=== PATIENT | female | born 1975 | race Hispanic/Latino ===

== ENCOUNTER 2019-05-02 18:29 | Day surgery (SDC) | payer SELFPAY ==
[2019-05-02 19:10] VITALS: BP 114/56; TEMP 98.6; BMI 26.7
--- NOTE | 2019-05-02 20:42 | PDOC.EVN ---
Event Note - Event Note Event Note: OBGYN Atending At bedside 43 yo Grandmultip with poss CTX. No LOF No VB Good FM CX was 1cm/50/-3...BOWI Do not suspect active PTL. We will check TVL sono per protocol See full H&P
--- NOTE | 2019-05-02 22:43 | ULT ---
US Pelvic W Doppler History: Pain Comparison: None. Findings: Real-time grayscale, color, and spectral analysis of the gravid uterus was performed. Single intrauterine with heart rate documented at 132 bpm. The placenta is posterior. Amnio tic fluid index: 19.1 cm. Fetus is in vertex position. Cervix measures 4.3 cm and is closed. Impression: Single viable intrauterine with closed cervix.
--- NOTE | 2019-05-02 22:53 | PDOC.EVN ---
Event Note - Event Note Event Note: CX 4cm...ok for DC home Strip checked by me
--- NOTE | 2019-05-02 23:01 | PDOC.FPROB ---
Addendum entered and electronically signed by Dioni Black MD 05/03/19 00:02 : TVU revealed a cervical length > 4 cm. Patient was counseled that she was not in active labor and the should would be DC'd home with strict return instructions if she felt her contractions begin to increase or if she felt a loss of fluid or felt a gush of blood. Original Note: FMR OB H&P: HPI - History of Present Illness Chief Complaint: Contractions History of Present Illness: Mrs. Jim Win is a 43 y/o at 32W with a history of 5 SVDs, 1 prior C- Section, and 1 prior who presents to L&D with contractions. She states that she has been having contractions sporadically for the past 2 days. She denies any loss of fluid or loss of movement, as well as any headaches, changes in vision, changes in hearing, epistaxis, cough, chest pain, shortness of breath or N/V/D. Primary Care Physician: Dr. Hanna Gallagher ([facility]) FMR OB H&P: Current - Care : 8 Para: 7 Gestational age: 32W - OB Labs Blood type: unknown RH: unknown Antibody Screen: unknown HIV: unknown RPR: unknown HepBsAg: unknown Quad screen: unknown Urine drug screen: not done Gonorrhea: unknown Chlamydia: unknown GBS: unknown FMR OB H&P: History - Past Medical History PMH: None - OB History OB History: See HPI - SCRAPE GATHERER History SCRAPE GATHERER History: None - Surgical History Sx History: See HPI - Social History Social History: Patient denied x3. - Family History Family History: Non-contributory. FMR OB H&P: Medications - Current Home Medications: Medication Instructions Recorded Confirmed Type Pnv No.95/Ferrous Fum/Folic AC 1 tab PO DAILY 05/02/19 05/02/19 History [ Vitamins Tablet] Allergies/Adverse Reactions: Allergies Allergy/AdvReac Type Severity Reaction Status Date / Time No Known Allergies Allergy Verified 05/02/19 19:14 FMR OB H&P: ROS - Review of Systems General: reports: fatigue. denies: fever/chills, night sweats, recent trauma Eyes: denies: eye pain, vision changes ENT: denies: nasal congestion, rhinorrhea, frequent nose bleed, ear pain, ringing in ears Cardiovascular: denies: chest pain, palpitation, edema Respiratory: denies: cough, congestion, shortness of breath Gastrointestinal: denies: nausea, vomiting, diarrhea Genitourinary (Female): reports: contractions. denies: dysuria, hematuria, vaginal discharge, vaginal pain, vaginal bleeding Musculoskeletal: denies: pain, arthritis/arthralgias Neurologic: denies: syncope, headache Hematologic/Lymphatic: denies: prolonged or excessive bleeding FMR OB H&P: Vital Signs - Maternal Vital signs: Vital Signs - First Documented Temp Pulse Resp BP Pulse Ox 98.6 F 69 20 114/56 L 98 05/02/19 19:01 05/02/19 19:01 05/02/19 19:01 05/02/19 19:05/02/19 19:01 - Heart Tones Baseline: 140 Variability: moderate Acceleration: present Deceleration: absent (>Q15M) FMR OB H&P: Physical Exam - Physical Exam General: NAD, awake, alert and oriented HEENT: normocephalic and atraumatic, PERRLA, EOMI, MMM, conjunctiva clear, no scleral icterus, grossly normal vision, grossly normal hearing, normal nasal mucosa, oropharynx clear Neck: supple, FROM, trachea midline, no LAD Chest: non-tender to palpation, no lesions Breast: symmetric Heart: RRR, normal S1/S2, no murmurs/rubs/gallops, pulses present, no edema General: CTAB, no respiratory distress, good air movement, no rales/rhonchi, no wheezing, no retractions Abdomen: gravid, non-tender Musculoskeletal: pulses present, FROM in all four extremities, no misalignment/ asymmetry Neurological: sensation to pain,touch and proprioception grossly normal, no tremor, no focal deficit Skin: no rash, no jaundice Lymphatic: no unusual bruising or bleeding, no purpura, no petechia, no LAD Psychiatric: intact recent and remote memory, good judgement and insight, normal mood and affect FMR OB H&P: A/P Disposition: 1. Labor Check -Patient currently being monitored on L&D Floor -Maternal / vital signs WNL -Physical exam did not reveal any noticeable loss of fluids or gush of blood -SVE performed by nursing staff did not reveal cervical dilation or considerable cervical thinning Dispo: Observe patient on L&D Floor for 2H for likely intermittent contractions w/o PTL. Plan for TVU to assess cervical length. DC home if cervical length on TVU is > 2.5 cm. Expected LOS < 4H. Discussion: Date/Time: 05/02/19 2300 This H&P was discussed with , who agrees with the above documentation and plan. ATTENDING NOTE: Plan of care reviewed.
[2019-05-03] MEDS ORDERED: FLU VACC QS2019-20(6MOS UP)/PF 60 MCG/0.5 ML SYRINGE IM ONE (09:00)
== END 2019-05-02 23:08 | disposition home or self-care (01) ==
LOC: L&D/OP 18:29
PROVIDERS: ATTEND Obstetrics & Gynecology
DX: O47.03 False labor before 37 completed weeks of gestation, third trimester (principal); O09.523 Supervision of elderly multigravida, third trimester; O34.219 Maternal care for unspecified type scar from previous cesarean delivery; Z3A.32 32 weeks gestation of pregnancy
CPT/HCPCS: 76856; 93976

== ENCOUNTER 2019-06-03 03:58 | Inpatient (IN) | payer MEDICAID, SELFPAY ==
[2019-06-03] MEDS ORDERED: NS / Oxytocin 40 units/1000ml 1,000 ML ONE (04:28)
[2019-06-03] MEDS ORDERED: Lidocaine 1% (PF) 30 ML VIAL ONE (04:28)
[2019-06-03] MEDS ORDERED: hydrALAZINE 20 MG/ML VIAL SLOW IVP PRN ×2 (04:35→07:03)
[2019-06-03] MEDS ORDERED: Misoprostol 200 MCG TAB PR PRN (04:35)
[2019-06-03] MEDS ORDERED: Ibuprofen 800 MG TAB PO PRN (04:35)
[2019-06-03] MEDS ORDERED: Promethazine HCl 25 MG/ML VIAL IM PRN (04:35)
[2019-06-03] MEDS ORDERED: Ondansetron PF 4 MG/2 ML Vial IVP PRN (04:35)
[2019-06-03] MEDS ORDERED: Methylergonovine 0.2 MG/ML VIAL IM PRN (04:35)
[2019-06-03] MEDS ORDERED: NS / Oxytocin 40 units/1000ml 1,000 ML IV PRN (04:35)
[2019-06-03] MEDS ORDERED: Lidocaine 1% (PF) 30 ML VIAL SC PRN (04:35)
[2019-06-03] MEDS ORDERED: Penicillin G Potassium 5 MILL.UNITS VIAL ONE (04:36)
[2019-06-03 04:39] VITALS: BMI 29.7
--- NOTE | 2019-06-03 04:39 | PDOC.FPROB ---
FMR OB H&P: HPI - History of Present Illness Chief Complaint: ctx Indentification: 43 y/o @ 36.4 WGA History of Present Illness: presents for ctx that have been going on since yesterday. Denies VB, d/c, LOF. Endorses movement. Primary Care Physician: Dr. Gallagher- [facility] FMR OB H&P: Current - Care : 8 Para: 7007 Gestational age: 36.4 - OB Labs Blood type: O RH: positive Antibody Screen: negative HIV: negative RPR: negative HepBsAg: negative Gonorrhea: negative Chlamydia: negative GBS: unknown FMR OB H&P: History - Past Medical History PMH: Denies - OB History OB History: 5 term , 1 section for failure to progress, 1 successful - Surgical History Sx History: section x1 - Social History Social History: Denies tobacco, EtOH, or drug use - Family History Family History: Denies FMR OB H&P: Medications - Current Home Medications: Medication Instructions Recorded Confirmed Type Pnv No.95/Ferrous Fum/Folic AC 1 tab PO DAILY 05/02/19 05/02/19 History [ Vitamins Tablet] Allergies/Adverse Reactions: Allergies Allergy/AdvReac Type Severity Reaction Status Date / Time No Known Allergies Allergy Verified 05/02/19 19:14 FMR OB H&P: ROS - Review of Systems General: denies: fever/chills, weight/appetite/sleep changes Eyes: denies: vision changes, double vision ENT: denies: nasal congestion, sore throat Cardiovascular: denies: chest pain, edema Respiratory: denies: cough, shortness of breath Gastrointestinal: denies: nausea, diarrhea Genitourinary (Female): reports: contractions. denies: dysuria, hematuria, vaginal discharge, vaginal bleeding Musculoskeletal: denies: pain, tenderness Neurologic: denies: numbness, weakness Integumentary: denies: itching, rash Psychological: denies: depression, anxiety FMR OB H&P: Vital Signs - Maternal Vital signs: Temp 98.8, HR 81, RR 20, BP 122/64 - Heart Tones Baseline: 130 Variability: moderate Acceleration: absent Deceleration: absent Category: category 1 [place] contractions every: 3 min FMR OB H&P: Physical Exam - Physical Exam General: NAD, awake, alert and oriented HEENT: MMM, conjunctiva clear, grossly normal vision, grossly normal hearing Neck: supple, FROM Heart: pulses present, no edema General: no respiratory distress Musculoskeletal: pulses present, FROM in all four extremities Neurological: no clonus, no focal deficit Skin: good tugor, capillary refill <2 seconds Lymphatic: no unusual bruising or bleeding, no purpura Psychiatric: intact recent and remote memory, good judgement and insight - Pelvic Exam SVE: FMR OB H&P: A/P - Problem List (1) Active labor Current Visit: Yes Status: Acute Code(s): O60.10X0 - LABOR W DELIVERY, UNSP TRIMESTER, UNSP Qualifiers: Fetus number: single or unspecified fetus Qualified Code(s): O60.10X0 - labor with delivery, unspecified trimester, not applicable or unspecified Assessment and Plan: Pt presented at -Admit for labor -LR @ 125 -GBS ppx as pt -FHT (2) Grand multipara in labor Current Visit: Yes Status: Acute Code(s): O09.40 - SUPERVISION OF W GRAND MULTIPARITY, UNSP TRIMESTER Assessment and Plan: Pt high risk of PPH, will have meds at bedside (3) H/O section Current Visit: Yes Status: Acute Code(s): Z98.891 - HISTORY OF UTERINE SCAR FROM PREVIOUS SURGERY Assessment and Plan: pt with 1 prior in [facility] with a subsequent successful -Will anticipate (4) Encounter for trial of labor Current Visit: Yes Status: Acute Code(s): [id number] - Assessment and Plan: Will expectantly manage as pt 8cm on admission (5) AMA (advanced maternal age) multigravida 35+ Current Visit: Yes Status: Acute Code(s): O09.529 - SUPERVISION OF ELDERLY MULTIGRAVIDA, UNSPECIFIED TRIMESTER Qualifiers: Trimester: third trimester Qualified Code(s): O09.523 - Supervision of elderly multigravida, third trimester Disposition: Admit to L&D Discussion: Date/Time: 06/03/19 5797 This H&P was discussed with Dr. Lin who agrees with the above documentation and plan. Signature: Paris Jackson MD, PGY-3 Addendum - Attending - Attending Attestation Date/Time: 06/03/19 2250 I personally evaluated the patient and discussed the management with Dr. Jackson. I agree with the History, Examination, Assessment and Plan documented above.
[2019-06-03] MEDS ORDERED: Lactated Ringer's 1,000 ML IV SCH (04:45)
[2019-06-03] MEDS ORDERED: Penicillin G 2.5 MILL.units 2.5 MILL.UNITS in Premix Bag 1 BAG IVPB SCH (04:45)
[2019-06-03] MEDS ORDERED: Penicillin G Potassium 5 MILL.UNITS in Sodium Chloride 0.9% 100 ML IVPB SCH (04:45)
[2019-06-03 05:20] LABS: Hemoglobin 12.5 g/dL (12.0-16.0); Mean Corpuscular HGB CONC 33.8 g/dL (32.0-36.0); Mean Corpuscular Hemoglobin 31.8 pg (27.0-31.0); Mean Corpuscular Volume 94.3 fL (78.0-98.0); Mean Platelet Volume 7.7 fL (7.4-10.4); Platelet Count 228 thou/uL (130-400); RBC Distribution Width 11.9 % (11.5-14.5); Red Blood Cell (RBC) Count 3.94 mill/uL (4.20-5.40); White Blood Cell (WBC) Count 13.6 thou/uL (4.8-10.8)
[2019-06-03 05:59] LABS: HBSAg Index 0.19 S/CO (0-0.99); Hep B Surf Ag Non-Reactive S/CO (NonReactive); Syphilis Antibody Nonreactive (Nonreactive); Syphilis Antibody Index 0.08 S/CO (<1.00 Non-Reactive)
[2019-06-03] MEDS ORDERED: Adacel (T-DAP) 0.5 ML SYRINGE IM ONE (07:03)
[2019-06-03] MEDS ORDERED: Milk Of Magnesia 30 ML UDCUP PO PRN (07:03)
[2019-06-03] MEDS ORDERED: Lanolin Ointment 7 GM TUBE TOP PRN (07:03)
[2019-06-03] MEDS ORDERED: Bisacodyl 10 MG SUPP PR PRN (07:03)
[2019-06-03] MEDS ORDERED: NS / Oxytocin 40 units/1000ml 1,000 ML IV SCH (07:03)
--- NOTE | 2019-06-03 07:05 | PDOC.OBPPN ---
FMR OB PN: Subj - Interval History Hospital Day: 1 Day: 0 Chief Complaint: mild abdominal pain Indentification: Interval History: s/p @ 0550 FMR OB PN: Obj - Maternal Vital signs: BP: 114/56 HR: 83 - Lochia Lochia: moderate amount of blood noted - Pain Management Pain scale: 2 Intervention: oral medication FMR OB PN: Exam - Physical Exam General: NAD, awake, alert and oriented HEENT: normocephalic and atraumatic, grossly normal vision, grossly normal hearing Neck: supple, FROM Heart: RRR, normal S1/S2 General: CTAB, no respiratory distress, good air movement, no rales/rhonchi, no wheezing, no retractions Abdomen: soft, fundus(cm) (just at umbilicus), non-tender, bowel sound present Musculoskeletal: FROM in all four extremities Neurological: cranial nerves II through XII intact, sensation to pain,touch and proprioception grossly normal, no focal deficit Skin: no rash, good tugor, capillary refill <2 seconds : appropriately tender Lymphatic: no unusual bruising or bleeding, no purpura, no petechia Psychiatric: intact recent and remote memory, good judgement and insight, normal mood and affect - Pelvic Exam : normal lochia FMR OB PN: Data - Labs Lab results: Laboratory Results - last 24 hr 06/03/19 06/03/19 06/03/19 05:09 05:09 05:09 WBC RBC Hgb Hct MCV MCH MCHC RDW Plt Count MPV Syphilis IgG/IgM Ab Nonreactive Hep Bs Antigen Non-Reactive Blood Type O POSITIVE Antibody Screen NEGATIVE 06/03/19 05:09 WBC 13.6 H RBC 3.94 L Hgb 12.5 Hct 37.1 MCV 94.3 MCH 31.8 H MCHC 33.8 RDW 11.9 Plt Count 228 MPV 7.7 Syphilis IgG/IgM Ab Hep Bs Antigen Blood Type Antibody Screen FMR OB PN: A/P - Problem List (1) Status post normal vaginal delivery Current Visit: Yes Status: Acute Code(s): [id number] - (2) 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 s/p : - Pain well-controlled. Normal lochia. Vitals WNLs. Plans to breastfeed. Will continue routine PP care. Anemia in : - s/p iron transfusion earlier in in [facility]. - H/H on admission 12.5/37.1. - Will continue PNVs & only repeat H/H should concerns arise for PPH. Grand multipara: - Aware. - Will monitor closely for S/S of PPH but fundus firm immediately following delivery w/ no lacs noted. - Will discuss need for contraception in detail prior to discharge given patient 's age and increased risk of complications with future deliveries. AMA: - Aware, patient declined testing and unsure if ever saw MFM per PNC notes. - Concern for down's in . h/o C/S: - Aware, patient now s/p successful x2. h/o : - Aware. Dispo: Continue routine PP care. Discussion: Date/Time: 06/03/19702 This H&P was discussed with Dr. Lin who agrees with the above documentation and plan. Addendum - Attending - Attending Attestation Date/Time: 06/03/19732 I personally evaluated the patient and discussed the management with Dr. Gallagher. I agree with the Assessment and Plan documented above.
[2019-06-03] MEDS: Acetaminophen/Codeine 30-300mg Tablet PO PRN (07:53)
[2019-06-03] MEDS ORDERED: FLU VACC QS2019-20(6MOS UP)/PF 60 MCG/0.5 ML SYRINGE IM ONE (09:00)
[2019-06-03] MEDS: Prenatal Vitamin 1 TAB PO SCH (09:13)
[2019-06-03] MEDS: Docusate Calcium (SURFAK) 240 MG CAP PO SCH ×2 (09:13→21:30)
[2019-06-03] MEDS: Ferrous Sulfate 325 MG TAB PO SCH ×2 (09:16→15:28)
[2019-06-03] MEDS: Ibuprofen 800 MG TAB PO SCH ×2 (13:51→21:30)
--- NOTE | 2019-06-04 00:14 | PDOC.OBPPN ---
FMR OB PN: Subj - Interval History Hospital Day: 2 Day: 1 Chief Complaint: orthostasis Indentification: Interval History: pp day #1 s/p FMR OB PN: Obj - Maternal Vital signs: BP: 93/50 HR: 60 RR: 20 Tmax: 97.7F Pox: 99% on RA Wt: 68.946 kg - Urine output I&O: 06/02/19 06/03/19 06/04/19 06:59 06:59 06:59 Output Total 188 Balance -188 - Lochia Lochia: small amount of blood on ashley pad - Pain Management Pain scale: 2 Intervention: oral medication FMR OB PN: Exam - Physical Exam General: NAD, awake, alert and oriented HEENT: normocephalic and atraumatic, grossly normal vision, grossly normal hearing Neck: supple, FROM Heart: RRR, normal S1/S2, no murmurs/rubs/gallops, pulses present, no edema General: CTAB, no respiratory distress, good air movement, no rales/rhonchi, no wheezing Abdomen: soft, fundus(cm) (firm just below umbilicus), bowel sound present Musculoskeletal: FROM in all four extremities, other (negative Severino's sign B/L) Neurological: cranial nerves II through XII intact, sensation to pain,touch and proprioception grossly normal, no focal deficit Skin: no rash, good tugor, capillary refill <2 seconds, no jaundice : no edema, appropriately tender Lymphatic: no unusual bruising or bleeding, no purpura Psychiatric: intact recent and remote memory, good judgement and insight, normal mood and affect - Pelvic Exam : normal lochia FMR OB PN: Data - Labs Lab results: Laboratory Results - last 24 hr 06/03/19 06/03/19 06/03/19 05:09 05:09 05:09 WBC RBC Hgb Hct MCV MCH MCHC RDW Plt Count MPV Syphilis IgG/IgM Ab Nonreactive Hep Bs Antigen Non-Reactive Blood Type O POSITIVE Antibody Screen NEGATIVE 06/03/19 06/03/19 05:09 08:12 WBC 13.6 H RBC 3.94 L Hgb 12.5 Hct 37.1 MCV 94.3 MCH 31.8 H MCHC 33.8 RDW 11.9 Plt Count 228 MPV 7.7 Syphilis IgG/IgM Ab Hep Bs Antigen Blood Type O POSITIVE Antibody Screen FMR OB PN: A/P - Problem List (1) Status post normal vaginal delivery Current Visit: Yes Status: Acute Code(s): [id number] - (2) 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 s/p : - Pain well-controlled on PO meds. Ambulating, stooling, and voiding normally. Tolerating PO. Normal lochia. Will continue routine PP care. Anemia in : - s/p iron transfusion earlier in in [facility]. - H/H on admission 12.5/37.1. - Will continue PNVs & repeat H/H should patient become symptomatic. Does endorse transient orthostasis upon standing so will get orthostatic vital signs. Otherwise BPs have been low normal as well as HR. EBL & QBL on 188mL total since delivery. Grand multipara: - Aware. - Will discuss need for contraception in detail prior to discharge given patient 's age and increased risk of complications with future deliveries. AMA: - Aware, patient declined testing and unsure if ever saw MFM per PNC notes. - Suspected down syndrome in infant likely 2/2 this. h/o C/S: - Aware, patient now s/p successful x2. h/o : - Aware. Difficult social situation: - Patient currently lives with her brother as her abandoned her. All children except 5YO daughter are in [facility] with 18YO daughter. Infant delivered yesterday most likely has Down syndrome and will need close monitoring. - CM consult placed yesterday to ensure home situation is safe for infant to go home with mom. Dispo: Continue routine PP care. Anticipate possible d/c home tomorrow pending CM evaluation due to complicated social situation & 's clinical course. May require bed and breakfast stay if continues to have complications. Discussion: Date/Time: 06/04/19 0013 This H&P was discussed with Dr. Kearney who agrees with the above documentation and plan.
[2019-06-04] MEDS: Ibuprofen 800 MG TAB PO SCH ×3 (05:30→21:58)
[2019-06-04] MEDS: Prenatal Vitamin 1 TAB PO SCH (08:56)
[2019-06-04] MEDS: Docusate Calcium (SURFAK) 240 MG CAP PO SCH ×2 (08:57→19:51)
[2019-06-04] MEDS: Ferrous Sulfate 325 MG TAB PO SCH ×2 (08:58→16:12)
--- NOTE | 2019-06-04 09:00 | DN ---
DATE OF PROCEDURE: 06/03/2019 DELIVERING PHYSICIAN: Hanna Gallagher MD. PROCEDURE PERFORMED: Spontaneous vaginal delivery. ANESTHESIA: None. EBL: Approximately 100 mL. PREOPERATIVE DIAGNOSES: 1. intrauterine , in labor. 2. Grand multipara, in labor. 3. History of section with successful vaginal after cesarian section x1. 4. Advanced maternal age. 5. Anemia in . POSTOPERATIVE DIAGNOSES: 1. intrauterine in labor. 2. Grand multipara, in labor. 3. History of section with successful vaginal after cesarian section x1. 4. Advanced maternal age. 5. Anemia in . INDICATIONS: A 43-year-old female, G8, P7-0-0-7, presents in active labor. DELIVERY NOTE: This is a 43-year-old female, parous, G8, P7-0-0-7 at 36.4 weeks, who delivered a viable male at 0558 hours. Following an uneventful intrapartum course, a vigorous male infant was delivered over an intact perineum in the occipitoanterior position. Anterior shoulder delivery was delayed by a tight nuchal cord x1, which was clamped and cut, allowing the head, anterior shoulder , and remainder of the body to be delivered easily. The head was held down, and mouth and nares were bulb suctioned. Cord was clamped and cut, and cord blood was collected. Placenta delivered intact with a 3-vessel cord noted. Fundal massage was performed, and the fundus was firm. The cervix and vagina were inspected and found to be free of lacerations. Apgars were 8 and 9 at one and five minutes respectively. However, the infant went to the Nursery in guarded condition shortly following delivery for close monitoring as his distal extremities were noted to be cyanotic and he was having brief apneic episodes. The patient tolerated delivery well and went to after routine recovery/care. Present to attend and assist in this . Agree with the details provided by Dr. Gallagher above. Baby to Nursery for observation. Mom to recover in L&D. Job ID: [id number] MTDD
[2019-06-04] MEDS: Acetaminophen/Codeine 30-300mg Tablet PO PRN (19:51)
--- NOTE | 2019-06-05 03:17 | PDOC.OBPPN ---
FMR OB PN: Subj - Interval History Hospital Day: 2 Day: 2 Chief Complaint: none Indentification: Interval History: Routine, uneventful PP course FMR OB PN: Obj - Maternal Vital signs: BP: 103/59 HR: 78 RR: 12 Tmax: 98.3F Pox: 96% on RA Wt: 68.946 kg - Urine output I&O: 06/03/19 06/04/19 06/05/19 06:59 06:59 06:59 Output Total 188 Balance -188 - Lochia Lochia: moderate bleeding noted on pad - Pain Management Intervention: oral medication FMR OB PN: Exam - Physical Exam General: NAD, awake, alert and oriented HEENT: normocephalic and atraumatic, grossly normal vision, grossly normal hearing Neck: supple, FROM Heart: RRR, normal S1/S2, no murmurs/rubs/gallops, pulses present, no edema General: CTAB, no respiratory distress, good air movement, no rales/rhonchi, no wheezing, no retractions Abdomen: soft, fundus(cm) (firm just at the umbilicus but deviated to the left) , bowel sound present Musculoskeletal: FROM in all four extremities Neurological: cranial nerves II through XII intact, sensation to pain,touch and proprioception grossly normal, no focal deficit Skin: no rash, good tugor, capillary refill <2 seconds, no jaundice : appropriately tender Lymphatic: no unusual bruising or bleeding, no purpura, no petechia Psychiatric: intact recent and remote memory, good judgement and insight, normal mood and affect - Pelvic Exam : no discharge, no edema, normal lochia FMR OB PN: A/P - Problem List (1) Status post normal vaginal delivery Current Visit: Yes Status: Acute Code(s): [id number] - (2) 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 s/p : - Pain well-controlled on PO meds. Ambulating, stooling, and voiding normally. Tolerating PO. Normal lochia. Continue routine PP care. Anemia in : - s/p iron transfusion earlier in in [facility]. - H/H on admission 12.5/37.1. - Will continue PNVs & repeat H/H should patient become symptomatic. Grand multipara: - Aware. - Will discuss need for contraception in detail prior to discharge given patient 's age and increased risk of complications with future deliveries. AMA: - Aware, patient declined testing and unsure if ever saw MFM per PNC notes. - Suspected down syndrome in infant likely 2/2 this. Chromosomal analysis pending. h/o C/S: - Aware, patient now s/p successful x2. h/o : - Aware. Difficult social situation: - Patient currently lives with her brother as her abandoned her. All children except 5YO daughter are in [facility] with 19YO daughter. Infant delivered yesterday most likely has Down syndrome and will need close monitoring. Per CM note, patient is comprehending amount of attention will need and CM will make a referral to [facility] for any needs pts may have reaching his milestones. Pt will be referred to [facility] as well to assist with ER PEGG[facility] services. Dispo: Anticipate d/c home vs. to bed and breakfast today pending 's clinical course. Discussion: Date/Time: 06/05/19315 This H&P was discussed with Dr. Lopez who agrees with the above documentation and plan.
[2019-06-05] MEDS ORDERED: Sodium Chloride 0.9% 0 ML ONE (04:37)
[2019-06-05] MEDS: Ibuprofen 800 MG TAB PO SCH (05:27)
[2019-06-05 08:11] VITALS: BP 117/64; TEMP 98.6
[2019-06-05] MEDS: Ferrous Sulfate 325 MG TAB PO SCH (09:08)
[2019-06-05] MEDS: Prenatal Vitamin 1 TAB PO SCH (09:09)
[2019-06-05] MEDS: Docusate Calcium (SURFAK) 240 MG CAP PO SCH (09:10)
== END 2019-06-05 14:35 | disposition home or self-care (01) | DRG 807 ==
LOC: L&D/OP 03:58 → L&D 04:15 → 3SW 08:42
PROVIDERS: ADMIT Obstetrics & Gynecology; ATTEND Obstetrics & Gynecology
PROC: 10E0XZZ Delivery of Products of Conception, External Approach (ICD-10-PCS; principal; 2019-06-03)
DX: O60.14X0 Preterm labor third trimester with preterm delivery third trimester, not applicable or unspecified (principal); Z37.0 Single live birth; O99.02 Anemia complicating childbirth; O69.1XX0 Labor and delivery complicated by cord around neck, with compression, not applicable or unspecified; Z3A.36 36 weeks gestation of pregnancy; D50.9 Iron deficiency anemia, unspecified
CPT/HCPCS: 36415; 85027; 86780; 86850; 86900; 86901; 87340; 88307; 99285; J2001; J2540